=== PATIENT | female | born 1960 | race Caucasian/White ===

== ENCOUNTER 2023-10-05 16:10 | Emergency (ER) | payer OTHER, SELFPAY ==
[2023-10-05 16:15] VITALS: BP 139/59; PULSE 85; RESP 18; TEMP 36.6; O2SAT 99; BMI 30.9
--- NOTE | 2023-10-05 16:29 | CT_ITS ---
The [address] [address] Patient Name: JOSEFINA TORIBIO MRN: [id number] date: 1960 Sex: F Assigned Patient Location: ED.MAIN Current Patient Location: ER Accession/Order Number: [id number] Exam Date: 10/05/2023 17:40 Report Date: 10/05/2023 18:47 At the request of: MAO JI Procedure: CT facial bones wo con EXAM: CT facial bones wo con HISTORY: right facial pain COMPARISON: None. TECHNIQUE: Facial bone CT imaging was performed without intravenous contrast. Multiplanar reformats were performed. Dose reduction techniques were achieved by using automated exposure control and/or adjustment of mA and/or kV according to patient size and/or use of iterative reconstruction technique. FINDINGS: There is no acute fracture or dislocation. Bilateral orbits, extremities are all muscles and optic nerves are unremarkable. Airway is patent. There is mucosal thickening of the right maxillary and sinus and bilateral ethmoidal cells. There is retention cyst/polyp of the right maxillary. The soft tissue is unremarkable. No abscess. TM joint is normal. CT/CT facial bones wo con IMPRESSION: No acute process. Retention cyst/polyp of the right maxillary sinus. Electronically authenticated by: KIEL MORALES Date: 10/05/2023 18:47
--- NOTE | 2023-10-05 16:30 | ED_ITS ---
Documented by User: [email or web address] Wesley 10/05/23 18:58 HPI - General Adult General Chief complaint: Dental/Oral Stated complaint: RT SIDE FACE PAIN Time Seen by Provider: 10/05/23 16:12 Source: patient and family Mode of arrival: walk-in Limitations: no limitations History of Present Illness HPI narrative: Patient Is a 63-year-old female who presents to the emergency department for 2 to 3-week history of pain along the right side of the face. She has no severe pain at this time but states earlier it became more severe which prompted her to come to the emergency department. She has had intermittent swelling in the face although she denies any swelling at this time. She has had no fevers, visual changes, speech changes or facial drooping. She saw dentist because she thought that she had a dental infection or bad tooth and states that the dentist did not find any concerning issues inside the mouth or with her teeth. She reports pain radiating along the right maxillary sinus into the right mandible. She has had no drainage from the ears, no upper respiratory symptoms.She has been using Tylenol throughout the day today for pain. Related Data Home Medications Medication Instructions Recorded Confirmed atorvastatin 40 mg tablet 40 mg PO DAILY 10/05/23 10/05/23 bupropion HCl 150 mg 24 hr tablet, 150 mg PO .QHS 10/05/23 10/05/23 extended release (Wellbutrin XL) empagliflozin 25 mg tablet 25 mg PO DAILY 10/05/23 10/05/23 (Jardiance) losartan 100 mg tablet 100 mg PO DAILY 10/05/23 10/05/23 semaglutide 0.25 mg or 0.5 mg (2 0.5 mg subcut QWEEK 10/05/23 10/05/23 mg/3 mL) subcutaneous pen injector (Ozempic) Previous Rx's Medication Instructions Recorded gabapentin 100 mg capsule 100 mg PO Q8H #20 caps 10/05/23 hydrocodone 5 mg-acetaminophen 325 1 tab PO Q6H PRN pain 3 days #12 10/05/23 mg tablet tabs Allergies Allergy/AdvReac Type Severity Reaction Status Date / Time No Known Drug Allergies Allergy Verified 10/05/23 16:14 Review of Systems ROS Constitutional Denies: fever or chills Eyes Denies: change in vision Ears, nose, mouth, and throat Denies: throat pain or nasal congestion Cardiovascular Denies: chest pain Respiratory Denies: shortness of breath or cough Gastrointestinal Denies: nausea or vomiting Musculoskeletal Denies: back pain or neck pain Integumentary/Breast Denies: rash Neurological Denies: headache Exam Narrative Exam Narrative: Gen.: Awake, alert, in no distress Head: Normocephalic, atraumatic ENT: Moist mucous membranes; Bilateral TMs clear, no dental caries or evidence of abscess. No redness or swelling under the tongue. No facial swelling noted. No pain on motion of the jaw or over the TMJ Respiratory: No respiratory distress Extremities: Moves extremities equally Psych: Normal mood and affect Neuro: No focal neuro deficit Skin: Warm, dry, intact Constitutional Vital Signs, click to edit/add: Last Vital Signs Temp 97.8 F 10/05/23 16:15 Pulse 85 10/05/23 16:15 Resp 18 10/05/23 16:15 BP 139/59 10/05/23 16:15 Pulse Ox 99 10/05/23 16:15 O2 Del Method Room Air 10/05/23 16:15 Course Vital Signs Vital signs: Vital Signs Temperature 97.8 F 10/05/23 16:15 Pulse Rate 85 10/05/23 16:15 Respiratory Rate 18 10/05/23 16:15 Blood Pressure 139/59 10/05/23 16:15 Pulse Oximetry 99 10/05/23 16:15 Oxygen Delivery Method Room Air 10/05/23 16:15 Temperature 97.8 F 10/05/23 16:15 Pulse Rate 85 10/05/23 16:15 Respiratory Rate 18 10/05/23 16:15 Blood Pressure 139/59 10/05/23 16:15 Pulse Oximetry 99 10/05/23 16:15 Oxygen Delivery Method Room Air 10/05/23 16:15 Medical Decision Making MDM Narrative Medical decision making narrative: Labs within normal limits, CT shows retention cyst in the right maxillary sinus with no other acute process. Patient was reevaluated by attending physician prior to discharge. She will be discharged home on a short course of analgesics and gabapentin to follow-up with her PCP. Return to the ER if symptoms change or worsen. Medical Records Medical records reviewed: Yes I reviewed the patient's medical records Lab Data Lab results reviewed: Yes I reviewed the patient's lab results Labs: Lab Results 10/05/23 Range/Units 16:46 WBC 10.0 (4.0-11.0) 10^3/uL RBC 4.85 (4.20-5.40) 10^6/uL Hgb 13.9 (12.0-16.0) g/dL Hct 42.3 (36.0-48.0) % MCV 87.2 (81.0-99.0) fL MCH 28.7 (26.7-34.0) pg MCHC 32.9 (29.9-35.2) g/dL RDW 13.4 (11.0-15.0) % Plt Count 241 (150-450) 10^3/uL MPV 11.3 (9.5-13.5) fL Neut % (Auto) 63.8 (43.0-75.0) % Lymph % (Auto) 26.4 (20.5-60.0) % [place] % (Auto) 6.8 (1.7-12.0) % Eos % (Auto) 2.1 (0.9-7.0) % Baso % (Auto) 0.7 (0.2-2.0) % Neut # (Auto) 6.4 (1.4-6.5) 10^3/uL Lymph # (Auto) 2.6 (1.2-3.8) 10^3/uL [place] # (Auto) 0.7 (0.3-0.8) 10^3/uL Eos # (Auto) 0.2 (0.0-0.7) 10^3/uL Baso # (Auto) 0.1 (0.0-0.1) 10^3/uL Abs Immat Gran (auto) 0.02 (0.00-0.03) 10^3/uL Imm/Tot Granulo (auto) 0.2 (0.0-0.5) % ESR 28 (<=30) mm/hr C-Reactive Protein <0.50 (<=0.50) mg/dL Imaging Data CT scan - head: Attestation: I have reviewed the pertinent imaging results. Radiologist's impression: ITS Impressions Facial Bones CT 10/05/23 16:29 IMPRESSION: No acute process. Retention cyst/polyp of the right maxillary sinus. Electronically authenticated by: KIEL MORALES Date: 10/05/2023 18:47 Discharge Plan Discharge Chief Complaint: Dental/Oral Clinical Impression: Atypical facial pain Patient Disposition: Home, Self-Care Time of Disposition Decision: 18:55 Condition: Good Prescriptions / Home Meds: New hydrocodone-acetaminophen 5-325 mg tablet 1 tab PO Q6H PRN (Reason: pain) 3 Days Qty: 12 0RF Rx Instructions: DX: G50.1 gabapentin 100 mg capsule 100 mg PO Q8H Qty: 20 0RF Rx Instructions: DX: G50.1 No Action Ozempic 0.25 mg or 0.5 mg (2 mg/3 mL) pen injector 0.5 mg subcut QWEEK Rx Instructions: for 4 weeks Jardiance 25 mg tablet 25 mg PO DAILY bupropion HCl [Wellbutrin XL] 150 mg tablet extended release 24 hr 150 mg PO .QHS atorvastatin 40 mg tablet 40 mg PO DAILY losartan 100 mg tablet 100 mg PO DAILY Instructions: Atypical Facial Pain (ED) Referrals: Chelsea Moseley MD [Physician] - 1 week PRIYA DOBBS [Physician] - 1 week Physician,Non-StaffMD [Primary Care Provider] - 1 week Discharge Date/Time: 10/05/23 19:30 Stand Alone Forms: Portal Instructions Documented by User: Nadir Bassett MD 10/05/23 19:58 HPI - General Adult General Chief complaint: Dental/Oral Stated complaint: RT SIDE FACE PAIN Time Seen by Provider: 10/05/23 16:12 Related Data Home Medications Medication Instructions Recorded Confirmed atorvastatin 40 mg tablet 40 mg PO DAILY 10/05/23 10/05/23 bupropion HCl 150 mg 24 hr tablet, 150 mg PO .QHS 10/05/23 10/05/23 extended release (Wellbutrin XL) empagliflozin 25 mg tablet 25 mg PO DAILY 10/05/23 10/05/23 (Jardiance) losartan 100 mg tablet 100 mg PO DAILY 10/05/23 10/05/23 semaglutide 0.25 mg or 0.5 mg (2 0.5 mg subcut QWEEK 10/05/23 10/05/23 mg/3 mL) subcutaneous pen injector (Ozempic) Previous Rx's Medication Instructions Recorded gabapentin 100 mg capsule 100 mg PO Q8H #20 caps 10/05/23 hydrocodone 5 mg-acetaminophen 325 1 tab PO Q6H PRN pain 3 days #12 10/05/23 mg tablet tabs Allergies Allergy/AdvReac Type Severity Reaction Status Date / Time No Known Drug Allergies Allergy Verified 10/05/23 16:14 Exam Constitutional Vital Signs, click to edit/add: Last Vital Signs Temp 97.8 F 10/05/23 16:15 Pulse 85 10/05/23 16:15 Resp 18 10/05/23 16:15 BP 139/59 10/05/23 16:15 Pulse Ox 99 10/05/23 16:15 O2 Del Method Room Air 10/05/23 16:15 Course Vital Signs Vital signs: Vital Signs Temperature 97.8 F 10/05/23 16:15 Pulse Rate 85 10/05/23 16:15 Respiratory Rate 18 10/05/23 16:15 Blood Pressure 139/59 10/05/23 16:15 Pulse Oximetry 99 10/05/23 16:15 Oxygen Delivery Method Room Air 10/05/23 16:15 Temperature 97.8 F 10/05/23 16:15 Pulse Rate 85 10/05/23 16:15 Respiratory Rate 18 10/05/23 16:15 Blood Pressure 139/59 10/05/23 16:15 Pulse Oximetry 99 10/05/23 16:15 Oxygen Delivery Method Room Air 10/05/23 16:15 Medical Decision Making MDM Narrative Medical decision making narrative: Labs within normal limits, CT shows retention cyst in the right maxillary sinus with no other acute process. Patient was reevaluated by attending physician prior to discharge. She will be discharged home on a short course of analgesics and gabapentin to follow-up with her PCP. Return to the ER if symptoms change or worsen. I, Dr Bassett, have reviewed the above progress note and course of action in the ER; agree with the above. I have personally seen and evaluated this patient, gone over history and physical, and discussed disposition and treatment plan with the patient. Patient will be referred to Dr. Dobbs for neurology and Dr. Moseley for ENT. Patient was educated and not overdosing on Tylenol. Patient took nitroglycerin tablets of Tylenol this morning, to this evening for follow-up 11 today. Patient had 5500 mg of Tylenol today. This is not a toxic dose, patient was educated was sent at bedside and the appropriate dose of Tylenol, not taking more than 3000 mg a day, and the potential for overdosing chronically if she continues to do this. Patient can use short-term anti-inflammatories. Patient was educated that she can use Tylenol, anti-inflammatories, ice, and gabapentin as needed. Education on trigeminal neuralgias possible differential diagnosis was done at bedside as well. Lab Data Labs: Lab Results 10/05/23 Range/Units 16:46 WBC 10.0 (4.0-11.0) 10^3/uL RBC 4.85 (4.20-5.40) 10^6/uL Hgb 13.9 (12.0-16.0) g/dL Hct 42.3 (36.0-48.0) % MCV 87.2 (81.0-99.0) fL MCH 28.7 (26.7-34.0) pg MCHC 32.9 (29.9-35.2) g/dL RDW 13.4 (11.0-15.0) % Plt Count 241 (150-450) 10^3/uL MPV 11.3 (9.5-13.5) fL Neut % (Auto) 63.8 (43.0-75.0) % Lymph % (Auto) 26.4 (20.5-60.0) % [place] % (Auto) 6.8 (1.7-12.0) % Eos % (Auto) 2.1 (0.9-7.0) % Baso % (Auto) 0.7 (0.2-2.0) % Neut # (Auto) 6.4 (1.4-6.5) 10^3/uL Lymph # (Auto) 2.6 (1.2-3.8) 10^3/uL [place] # (Auto) 0.7 (0.3-0.8) 10^3/uL Eos # (Auto) 0.2 (0.0-0.7) 10^3/uL Baso # (Auto) 0.1 (0.0-0.1) 10^3/uL Abs Immat Gran (auto) 0.02 (0.00-0.03) 10^3/uL Imm/Tot Granulo (auto) 0.2 (0.0-0.5) % ESR 28 (<=30) mm/hr C-Reactive Protein <0.50 (<=0.50) mg/dL Imaging Data CT scan - head: Radiologist's impression: ITS Impressions Facial Bones CT 10/05/23 16:29
[2023-10-05] MEDS: KETOROLAC TROMETHAMINE 10 MG TABLET PO (16:36)
[2023-10-05 17:05] LABS: Basophils Absolute Auto 0.1 10^3/uL (0.0-0.1); Basophils Percent Auto 0.7 % (0.2-2.0); Eosinophils Absolute Auto 0.2 10^3/uL (0.0-0.7); Eosinophils Percent Auto 2.1 % (0.9-7.0); Hematocrit 42.3 % (36.0-48.0); Hemoglobin 13.9 g/dL (12.0-16.0); Immature Granulocytes Abs Auto 0.02 10^3/uL (0.00-0.03); Immature Granulocytes Pct Auto 0.2 % (0.0-0.5); Lymphocytes Absolute Auto 2.6 10^3/uL (1.2-3.8); Lymphocytes Percent Auto 26.4 % (20.5-60.0); Mean Corpuscular HGB Conc 32.9 g/dL (29.9-35.2); Mean Corpuscular Hemoglobin 28.7 pg (26.7-34.0); Mean Corpuscular Volume 87.2 fL (81.0-99.0); Mean Platelet Volume 11.3 fL (9.5-13.5); Monocytes Absolute Auto 0.7 10^3/uL (0.3-0.8); Monocytes Percent Auto 6.8 % (1.7-12.0); Neutrophils Absolute Auto 6.4 10^3/uL (1.4-6.5); Neutrophils Percent Auto 63.8 % (43.0-75.0); Platelet Count 241 10^3/uL (150-450); Red Blood Count 4.85 10^6/uL (4.20-5.40); Red Cell Distribution Width 13.4 % (11.0-15.0)
[2023-10-05 17:18] LABS: Erythrocyte Sedimentation Rate 28 mm/hr (<=30)
[2023-10-05 17:24] LABS: C Reactive Protein <0.50 mg/dL (<=0.50)
== END 2023-10-05 19:30 | disposition home or self-care (01) ==
PROVIDERS: Physician Assistant; Emergency Provider Emergency Medicine
DX: G50.1 Atypical facial pain (principal); Z79.899 Other long term (current) drug therapy
CPT/HCPCS: 36415; 70486; 85025; 85652; 86140; 99284